=== PATIENT | male | born 1970 | race Caucasian/White ===

== ENCOUNTER 2020-09-18 17:59 | Emergency (ER) | payer OTHER ==
[~2020-09-18] VITALS: Ht 177.8 cm; Wt 101.9 kg
[~2020-09-18 17:59] MED LIST: AMITRIPTYLINE H75 MG PO; DULOXETINE HCL30 MG PO; HYDROCODON-ACE1 EA10 PO; IBUPROFEN600 MG PO; NORVASC5 MG PO; OMEPRAZOLE20 MG PO; TYLENOL EXTRA500 MG PO
[2020-09-18] MEDS ORDERED: LIPITOR10 MG GT (18:15)
[2020-09-18] MEDS ORDERED: CYMBALTA60 MG PO (18:15)
[2020-09-18] MEDS ORDERED: LIDOCAINE5 GM TP (18:16)
[2020-09-18] MEDS ORDERED: CAPZASIN-HP42.5 GM TOP (18:16)
[2020-09-18] MEDS ORDERED: OPCON-A EYE DRO15 ML OPTH (18:16)
[2020-09-18] MEDS ORDERED: CARBATROL100 MG PO (18:17)
[2020-09-18] MEDS ORDERED: PHENAZOPYRIDIN200 MG PO (18:17)
[2020-09-18] MEDS ORDERED: BACTRIM DS TAB1 EACH PO (20:25)
== END 2020-09-18 20:49 | disposition home or self-care (01) ==
LOC: ED 17:59
DX: N45.3 Epididymo-orchitis (principal); K21.9 Gastro-esophageal reflux disease without esophagitis; I10 Essential (primary) hypertension; G47.30 Sleep apnea, unspecified; E78.5 Hyperlipidemia, unspecified; Z87.891 Personal history of nicotine dependence; Z79.899 Other long term (current) drug therapy
CPT/HCPCS: 74176; 76870; 80053; 81001; 85025; 96374; 96375; 96376; 99284-25; J1170; J1885; J7030

== ENCOUNTER 2021-01-23 11:31 | Emergency (ER) | payer OTHER ==
[~2021-01-23] VITALS: Ht 177.8 cm; Wt 108.9 kg
[~2021-01-23 11:31] MED LIST changes: +BACTRIM DS TAB1 EACH PO; +CAPZASIN-HP42.5 GM TOP; +CARBATROL100 MG PO; +CYMBALTA60 MG PO; +LIDOCAINE5 GM TP; +LIPITOR10 MG GT; +OPCON-A EYE DRO15 ML OPTH; +PHENAZOPYRIDIN200 MG PO
[2021-01-23] MEDS ORDERED: NEURONTIN300 MG PO (14:18)
== END 2021-01-23 14:42 | disposition home or self-care (01) ==
LOC: ED 11:31
DX: N50.82 Scrotal pain (principal); K21.9 Gastro-esophageal reflux disease without esophagitis; I10 Essential (primary) hypertension; G47.30 Sleep apnea, unspecified; E78.5 Hyperlipidemia, unspecified; Z87.891 Personal history of nicotine dependence; Z79.899 Other long term (current) drug therapy
CPT/HCPCS: 76870; 81001; 96372; 99284-25; J1885

== ENCOUNTER 2022-01-17 20:51 | Emergency (ER) | payer OTHER ==
[~2022-01-17] VITALS: Ht 177.8 cm; Wt 108.9 kg
[~2022-01-17 20:51] MED LIST changes: -AMITRIPTYLINE H75 MG PO; +AMITRIPTYLINE100 MG PO; +NEURONTIN300 MG PO; +NORVASC10 MG PO; -NORVASC5 MG PO
[2022-01-17] MEDS ORDERED: LEXAPRO20 MG PO (21:13)
[2022-01-17] MEDS ORDERED: TRAZODONE HCL50 MG PO (21:14)
[2022-01-17] MEDS ORDERED: LIPITOR10 MG PO (21:15)
[2022-01-17] MEDS ORDERED: ST. JOSEPH ASPI81 M1 PO (21:15)
[2022-01-17] MEDS ORDERED: CELEBREX200 MG PO (21:16)
[2022-01-17] MEDS ORDERED: NITROSTAT0.4 MG SL (21:17)
[2022-01-17] MEDS ORDERED: CYCLOBENZAPRINE10 MG PO (22:53)
--- NOTE | 2022-01-18 07:18 | EKG ---
[facility] [address] [place], [place] [address] Signed Normal sinus rhythm Normal ECG When compared with ECG of 29-JUL-2021 21:48, No significant change was found Confirmed by REINALDO DEL ANGEL MD ([id number] on 01/18/2022 7:18:23 AM Electronically Signed By: REINALDO DEL ANGEL MD 01/18/22 0718 PATIENT NAME: LARAYEN Electrocardiogram DATE OF : 74 PHYSICIAN: REINALDO DEL ANGEL MD REPORT #: [id number] REPORT IS CONFIDENTIAL AND NOT TO BE RELEASED WITHOUT AUTHORIZATION
== END 2022-01-17 23:34 | disposition home or self-care (01) ==
LOC: ED 20:51
DX: R07.89 Other chest pain (principal); Z20.822 Contact with and (suspected) exposure to COVID-19; K21.9 Gastro-esophageal reflux disease without esophagitis; I10 Essential (primary) hypertension; G47.30 Sleep apnea, unspecified; E78.5 Hyperlipidemia, unspecified; Z87.891 Personal history of nicotine dependence; Z79.899 Other long term (current) drug therapy; Z79.82 Long term (current) use of aspirin
CPT/HCPCS: 36415; 71045; 80053; 83735; 83880; 84484; 85025; 85379; 85610; 85730; 87502; 93005; 93010; 96374; 96375; 99285-25; C9803; J1885; J2270; U0003

== ENCOUNTER 2022-03-28 15:02 | Emergency (ER) | payer OTHER ==
[~2022-03-28] VITALS: Ht 177.8 cm; Wt 108.9 kg
[~2022-03-28 15:02] MED LIST changes: +CELEBREX200 MG PO; +CYCLOBENZAPRINE10 MG PO; +LEXAPRO20 MG PO; +LIPITOR10 MG PO; +NITROSTAT0.4 MG SL; +ST. JOSEPH ASPI81 M1 PO; +TRAZODONE HCL50 MG PO
== END 2022-03-28 18:22 | disposition home or self-care (01) ==
LOC: ED 15:02
DX: R10.9 Unspecified abdominal pain (principal); K21.9 Gastro-esophageal reflux disease without esophagitis; I10 Essential (primary) hypertension; G47.30 Sleep apnea, unspecified; E78.5 Hyperlipidemia, unspecified; Z87.891 Personal history of nicotine dependence; Z79.899 Other long term (current) drug therapy; Z79.82 Long term (current) use of aspirin
CPT/HCPCS: 36415; 74177; 80053; 81003; 83690; 85025; 96374; 99284-25; J1885; J7030; Q9967

== ENCOUNTER 2022-05-23 15:37 | Emergency (ER) | payer OTHER ==
[~2022-05-23] VITALS: Ht 177.8 cm; Wt 104.3 kg
--- NOTE | 2022-05-23 19:57 | EKG ---
[facility] [address] [facility] [place], [place] [address] Signed Normal sinus rhythm Nonspecific T wave abnormality Abnormal ECG When compared with ECG of 17-JAN-2022 20:54, No significant change was found Confirmed by REINALDO DEL ANGEL MD ([id number] on 05/23/2022 7:56:47 PM Electronically Signed By: REINALDO DEL ANGEL MD 05/23/221956 PATIENT NAME: YEN LARA Electrocardiogram DATE OF : 74 PHYSICIAN: REINALDO DEL ANGEL MD REPORT #: [id number] REPORT IS CONFIDENTIAL AND NOT TO BE RELEASED WITHOUT AUTHORIZATION
[2022-05-23 20:16] VITALS: BP 140/85
== END 2022-05-23 20:16 | disposition home or self-care (01) ==
LOC: ED 15:37
DX: R07.89 Other chest pain (principal); I10 Essential (primary) hypertension; K21.9 Gastro-esophageal reflux disease without esophagitis; E78.5 Hyperlipidemia, unspecified; Z87.891 Personal history of nicotine dependence; Z79.899 Other long term (current) drug therapy; Z79.82 Long term (current) use of aspirin
CPT/HCPCS: 36415; 71045; 80053; 83735; 84484; 85025; 93005; 93010; 99285-25

== ENCOUNTER 2023-01-06 09:49 | Emergency (ER) | payer OTHER ==
[~2023-01-06] VITALS: Ht 177.8 cm; Wt 104.3 kg
[2023-01-06] MEDS ORDERED: CARBAMAZEPINE100 M2 PO (10:00)
[2023-01-06] MEDS ORDERED: AMITRIPTYLINE100 MG PO (10:00)
[2023-01-06] MEDS ORDERED: PAXIL40 MG PO (10:01)
[2023-01-06 10:02] LABS: BASOPHILS 0.5 % (0-2); EOSINOPHILS 2.1 % (0-6); HEMATOCRIT 40.7 % (35.0-50.0); LYMPHOCYTES 26.6 % (24-44); MCH 31.3 (27-36); MCHC 34.3 g/dl (30-36); MCV 91.3 fl (81-99); MONOCYTES 13.1 % (0-12); NEUTROPHILS 57.7 % (39-80); PLATELET COUNT 200 K/uL (140-440); RBC 4.46 M/ul (4.3-5.7); RDW 12.6 (10.5-15.0)
[2023-01-06] MEDS ORDERED: NITROSTAT0.4 MG SL (10:02)
[2023-01-06] MEDS ORDERED: ISOSORBIDE MONO60 MG PO (10:02)
[2023-01-06] MEDS ORDERED: ETODOLAC300 MG PO (10:02)
[2023-01-06] MEDS ORDERED: VENTOLIN HFA18 GM (10:03)
[2023-01-06] MEDS ORDERED: PREDNISOLONE ACE5 M1 OP (10:03)
[2023-01-06 10:17] LABS: ALBUMIN 3.7 g/dL (3.4-5.0); ALBUMIN/GLOBULIN RATIO 1.09 (1.1-2.4); ANION GAP 11.8 (7-21); BILIRUBIN, TOTAL 0.3 ng/dL (0.2-1.0); BUN/CREATININE RATIO 13.46 (6.0-28.6); CALCIUM 8.6 mg/dL (8.5-10.1); CREATININE, SERUM 1.04 mg/dL (0.70-1.30); MAGNESIUM 1.8 mg/dL (1.8-2.4); POTASSIUM 3.8 mmol/L (3.5-5.1); PROTEIN, TOTAL 7.1 g/dL (6.4-8.2)
[2023-01-06 12:27] VITALS: BP 121/83
--- NOTE | 2023-01-06 13:36 | EKG ---
[facility] [address] [facility] [place], [place] [address] Signed Normal sinus rhythm Normal ECG No previous ECGs available Confirmed by YAMILETH RAI MD ([id number] on 01/06/2023 1:36:13 PM Electronically Signed By: YAMILETH RAI 01/06/23 1336 PATIENT NAME: YEN LARA Electrocardiogram DATE OF : 74 PHYSICIAN: YAMILETH RAI REPORT #: [id number] REPORT IS CONFIDENTIAL AND NOT TO BE RELEASED WITHOUT AUTHORIZATION
== END 2023-01-06 12:27 | disposition home or self-care (01) ==
LOC: ED 09:49
PROVIDERS: Emergency Medicine
DX: R07.81 Pleurodynia (principal); F41.9 Anxiety disorder, unspecified; I10 Essential (primary) hypertension; E78.5 Hyperlipidemia, unspecified; K21.9 Gastro-esophageal reflux disease without esophagitis; G47.30 Sleep apnea, unspecified; Z87.891 Personal history of nicotine dependence; Z79.899 Other long term (current) drug therapy; Z79.82 Long term (current) use of aspirin
CPT/HCPCS: 36415; 71045; 80053; 83735; 84484; 85025; 85379; 93005; 93010; J2060; J2405